=== PATIENT | female | born 1955 | race Caucasian/White ===

== ENCOUNTER → 2016-11-13 | Outpatient (CLI) | payer MEDICARE, BC ==
--- NOTE | 2016-11-14 10:24 | MM ---
Reason for exam: screening (asymptomatic). Last mammogram was performed 1 year and 1 month ago. History: Patient is postmenopausal. Physical Findings: A clinical breast exam by your physician is recommended on an annual basis and results should be correlated with mammographic findings. MG 3D Screening Mammo W/Cad Bilateral CC and MLO view(s) were taken. Prior study comparison: September 29, 2015, bilateral MG 3d screening mammo w/cad. September 16, 2014, bilateral MG diagnostic mammo w CAD YURY. The breast tissue is heterogeneously dense. This may lower the sensitivity of mammography. There is chronic nodularity in the left breast. No significant changes when compared with prior studies. ASSESSMENT: Benign, BI-RAD 2 RECOMMENDATION: Routine screening mammogram of both breasts in 1 year.
--- NOTE | 2016-11-14 11:25 | BD ---
EXAMINATION TYPE: MG DEXA axial skeleton. DATE OF EXAM: 11/13/2016 COMPARISON: NONE CLINICAL HISTORY: Height: 66.7 IN Weight: 164 LBS FRAX RISK QUESTIONS: Alcohol (3 or more units per day): NO Family History (Parent hip fracture): NO Glucocorticoids (More than 3mos): NO (Ex: prednisone, prednisolone, methylprednisolone, dexamethasone, and hydrocortisone). History of Fracture in Adulthood: YES LEFT TIB/FIB Secondary Osteoporosis: 1. Type 1 Diabetes: NO 2. Hyperthyroidism: NO 3. Menopause before 45: NO 4. Malnutrition: NO 5. Chronic liver disease: NO Rheumatoid Arthritis: YES Current Tobacco Use: YES RISK FACTORS HISTORY OF: Active: YES Diet low in dairy products/other sources of calcium: YES Postmenopausal woman: AGE 48 Lost more than 2 inches in height since high school: YES 03/14" MEDICATIONS: Additional Medications: VIT D, METHOTREXATE, ASPIRIN, FOLIC ACID, COQ10, EXAM MEASUREMENTS: Bone mineral densitometry was performed using the [employer] System. Bone mineral density as measured about the Lumbar spine is: ----- L1-L4(G/cm2): 1.147 T Score Values are as follows: ----- L2: -0.6 ----- L3: 0.0 ----- L4: 0.6 ----- L1-L4: -0.3 Bone mineral density has: Decreased -12.7% since study of: 07/10/2006 Bone mineral density about the R hip (g/cm2): 0.771 Bone mineral density about the L hip (g/cm2): 0.755 T Score values are as follows: -----R Neck: -1.9 -----L Neck: -2.0 -----R Total: -1.9 -----L Total: -2.0 Bone mineral density has: Decreased -17.3% since study of: 07/10/2006 IMPRESSION: Osteopenia (T Score between -2.5 and -1 as noted by T score values There is slightly increased risk of fracture and the patient may be considered for treatment. Re-Screen 2-5 years. NOTE: T-SCORE=SD OF THE YOUNG ADULT MEAN.
== END | disposition home or self-care (01) ==
LOC: RADMAMWWP 15:24
PROVIDERS: ATTEND Internal Medicine Geriatric Medicine
DX: Z12.31 Encounter for screening mammogram for malignant neoplasm of breast (principal); M85.80 Other specified disorders of bone density and structure, unspecified site; M81.0 Age-related osteoporosis without current pathological fracture
CPT/HCPCS: 77080; 77063; G0202

== ENCOUNTER → 2017-09-05 | Outpatient (CLI) | payer MEDICARE, BC ==
--- NOTE | 2017-09-05 11:04 | CT ---
EXAMINATION TYPE: CT chest wo con DATE OF EXAM: 09/05/2017 COMPARISON: HRCT 01/20/2014 HISTORY: 62-year-old female Pulmonary nodule TECHNIQUE: Contiguous axial scanning of the chest without IV contrast. Coronal and sagittal reconstru ctions performed. CT DLP: 230.3 mGycm Automated exposure control for dose reduction was used. FINDINGS: Chronic nodularity within the medial left breast as compared to 2014. Heart normal size with trace anterior pericardial fluid. Coronary vessel calcifications are present. Aorta normal caliber with conventional arch vessel branching anatomy. No thoracic lymphadenopathy. Very minimal emphysematous changes present in the upper lungs. Mild tree-in-bud densities or centrilo bular nodularity peripheral right upper to midlung, axial image 22 through 28. Strandy atelectasis or scarring at the lung bases and some strandy atelectasis at the inferior lingula. No consolidation or pleural effusion. Subpleural nodularity posterior right apex measures 4 mm and is unchanged from 201 4 and most likely are result of pleural parenchymal scarring. The lateral left kidney lesion measures 2.1 cm, stable to minimally increased from 1.9 cm in 2014. Pr ior ultrasound workup showed a cyst here. A compensated cyst is suggested given the soft tissue atten uation. Mild endplate spondylosis mid to lower thoracic spine. IMPRESSION: 1. COPD WITH VERY MILD EMPHYSEMATOUS CHANGE. 2. Mild tree-in-bud infiltrate peripheral right upper lobe could represent impacted inflammatory or m ucoid debris in the small airways or bronchiolitis including infectious bronchiolitis. Clinically cor relation. 3. Stable subpleural nodule right apex as compared to 2014 likely relating to pleural parenchymal sca rring. 4. The 2.1 cm lateral left renal lesion continues to show soft tissue density but is not significantl y changed in size. Findings suggest a benign Bosniak category 2 cyst.
== END | disposition home or self-care (01) ==
LOC: RADCTMAIN 10:20
PROVIDERS: ATTEND Internal Medicine Pulmonary Disease
DX: J43.9 Emphysema, unspecified (principal); R91.1 Solitary pulmonary nodule; R91.8 Other nonspecific abnormal finding of lung field
CPT/HCPCS: 71250

== ENCOUNTER → 2017-11-20 | Outpatient (CLI) | payer MEDICARE, BC ==
--- NOTE | 2017-11-21 13:11 | MM ---
Reason for exam: screening (asymptomatic). Last mammogram was performed 1 year ago. History: Patient is postmenopausal. Physical Findings: A clinical breast exam by your physician is recommended on an annual basis and results should be correlated with mammographic findings. MG 3D Screening Mammo W/Cad Bilateral CC and MLO view(s) were taken. Prior study comparison: November 13, 2016, bilateral MG 3d screening mammo w/cad. September 29, 2015, bilateral MG 3d screening mammo w/cad. The breast tissue is heterogeneously dense. This may lower the sensitivity of mammography. There is chronic nodularity in the left breast. Benign fat necrosis calcifications on the left. ASSESSMENT: Negative, BI-RAD 1 RECOMMENDATION: Routine screening mammogram of both breasts in 1 year.
== END | disposition home or self-care (01) ==
LOC: RADMAMWWP 06:45
PROVIDERS: ATTEND Internal Medicine Geriatric Medicine
DX: Z12.31 Encounter for screening mammogram for malignant neoplasm of breast (principal)
CPT/HCPCS: 77063; 77067

== ENCOUNTER → 2018-12-12 | Outpatient (CLI) | payer MEDICARE, BC ==
--- NOTE | 2018-12-12 16:24 | CT ---
EXAMINATION TYPE: CT chest wo con DATE OF EXAM: 12/12/2018 COMPARISON: 09/05/2017 HISTORY: Dyspnea CT DLP: 205.2 mGycm, Automated exposure control for dose reduction was used. CONTRAST: Performed injected with 0 mL of Isovue 300. TECHNIQUE: Axial images were obtained at 5 mm thick sections. Reconstructed images are reviewed on [employer] computer in the coronal plane. FINDINGS: Portion of the thyroid visualized is normal. There is a 0.4 cm nodular density in the upper outer aspect right apex which is stable from compariso n. There is an area of pneumonitis or minimal infiltrate within the posterior aspect left middle lobe. E xample image series 4 image 27. This areas is increased in size over the interval and should be viewe d with suspicion. Neoplasm cannot be excluded. No enlarged mediastinal or hilar adenopathy is evident. The ascending aorta diameter at the level o f the main pulmonary artery is 3.3 cm. The main pulmonary artery diameter at the bifurcation is 2.5 cm. Mild coronary artery calcification is noted. Limited CT sections are obtained through the upper abdomen. There is an exophytic rounded area measur ing 41 Hounsfield units and 2.5 cm in diameter from the mid posterior lateral left kidney. Additional workup with ultrasound is recommended. IMPRESSIONS: 1. Increasing area of pneumonitis within the periphery of the right mid lung. This should be viewed w ith suspicion. Neoplasm is not excluded. 2. Complex cyst or solid mass extending from the posterior lateral left kidney midportion. Additional evaluation with ultrasound is recommended.
== END | disposition home or self-care (01) ==
LOC: RADCTMAIN 09:21
PROVIDERS: ATTEND Internal Medicine Pulmonary Disease
DX: J18.9 Pneumonia, unspecified organism (principal); J44.9 Chronic obstructive pulmonary disease, unspecified; J45.40 Moderate persistent asthma, uncomplicated; M06.9 Rheumatoid arthritis, unspecified
CPT/HCPCS: 71250

== ENCOUNTER → 2018-12-12 | Outpatient (CLI) | payer MEDICARE, BC ==
--- NOTE | 2018-12-12 12:08 | BD ---
EXAMINATION TYPE: Axial Bone Density DATE OF EXAM: 12/12/2018 COMPARISON: 11/13/2016 CLINICAL HISTORY: M 82.0 Height: 67 Weight: 154 FRAX RISK QUESTIONS: Alcohol (3 or more units per day): no Family History (Parent hip fracture): no Glucocorticoids (More than 3mos): yes-breathing machine (Ex: prednisone, prednisolone, methylprednisolone, dexamethasone, and hydrocortisone). History of Fracture in Adulthood: yes Secondary Osteoporosis: 1. Type 1 Diabetes: no 2. Hyperthyroidism: no 3. Menopause before 45: no 4. Malnutrition: no 5. Chronic liver disease: no Rheumatoid Arthritis: yes Current Tobacco Use: yes RISK FACTORS HISTORY OF: Family History of Osteoporosis: does not think so Active: yes Diet low in dairy products/other sources of calcium: no Postmenopausal woman: yes Take estrogen and/or progesterone medications: no Lost more than 2 inches in height since high school: no Frequent falls: no Poor Health: no Hyperparathyroidism: no Adrenal Insufficiency: no MEDICATIONS: Prednisone or other steroids: yes How Lon-4 years Thyroid Medications: no Osteoporosis Medications: no Additional Medications: calcium Methotrexate, aspirin, folic acid, COQ10, Vitamin D, infusions for rh eumatoid arthritis Additional History: COPD EXAM MEASUREMENTS: Bone mineral densitometry was performed using the [employer] System. Bone mineral density as measured about the Lumbar spine is: ----- L1-L4(G/cm2): 1.129 T Score Values are as follows: ----- L2: -0.9 ----- L3: -0.2 ----- L4: 0.2 ----- L1-L4: -0.4 Bone mineral density has: Decreased -2.9% since study of: 11/13/2016 Bone mineral density about the R hip (g/cm2): 0.764 Bone mineral density about the L hip (g/cm2): 0.753 T Score values are as follows: -----R Neck: -2.0 -----L Neck: -2.0 -----R Total: -1.9 -----L Total: -2.2 Bone mineral density has: Decreased -2.2% since study of: 11/13/2016 IMPRESSION: Osteopenia (T Score between -2.5 and -1). There is slightly increased risk of fracture and the patient may be considered for treatment. Re-Screen 2-5 years. NOTE: T-SCORE=SD OF THE YOUNG ADULT MEAN.
--- NOTE | 2018-12-16 09:24 | MM ---
Reason for exam: screening (asymptomatic). Last mammogram was performed 1 year and 1 month ago. History: Patient is postmenopausal. Physical Findings: A clinical breast exam by your physician is recommended on an annual basis and results should be correlated with mammographic findings. MG 3D Screening Mammo W/Cad Bilateral CC and MLO view(s) were taken. Prior study comparison: November 20, 2017, bilateral MG 3d screening mammo w/cad. November 13, 2016, bilateral MG 3d screening mammo w/cad. The breast tissue is heterogeneously dense. This may lower the sensitivity of mammography. There are benign appearing round dystrophic calcifications bilaterally. There is chronic nodularity in the left breast. There is no discrete abnormality. ASSESSMENT: Benign, BI-RAD 2 RECOMMENDATION: Routine screening mammogram of both breasts in 1 year.
== END | disposition home or self-care (01) ==
LOC: RADMAMWWP 07:45
PROVIDERS: ATTEND Internal Medicine Geriatric Medicine
DX: Z12.31 Encounter for screening mammogram for malignant neoplasm of breast (principal); M85.80 Other specified disorders of bone density and structure, unspecified site; M81.0 Age-related osteoporosis without current pathological fracture
CPT/HCPCS: 77063; 77067; 77080

== ENCOUNTER → 2019-03-18 | Outpatient (CLI) | payer MEDICARE, BC ==
--- NOTE | 2019-03-18 08:51 | CT ---
EXAMINATION TYPE: CT chest wo con DATE OF EXAM: 03/18/2019 COMPARISON: 12/12/2018, 09/05/2017, and mammogram 12/12/2018 HISTORY: 63-year-old female moderate persistent asthma with acute exacerbation, rheumatoid arthritis, COPD, lung nodule TECHNIQUE: Contiguous axial scanning of the chest without IV contrast. Coronal and sagittal reconstru ctions performed. CT DLP: 248.1 mGycm Automated exposure control for dose reduction was used. FINDINGS: Mass within the medial left breast is unchanged back to 09/05/2017 and corresponds to a circumscribed mass with associated calcifications on the patient's recent screening mammogram. Heart normal size with trace anterior pericardial effusion. LAD calcifications are present. Aorta normal caliber with conventional arch vessel branching anatomy. 8 mm precarinal lymph node. No thoracic lymphadenopathy by CT size criteria. Minimal biapical pleural-parenchymal scarring. Minimal scattered emphysematous cysts. Some focal tree-in-bud opacities peripheral right midlung persist but show improvement from 12/12/2018 . Some strandy bibasilar atelectasis or scarring particularly in the inferior lingula. No consolidati on or pleural effusion. An exophytic intermediate attenuation lesion from the lateral left kidney measures 2.3 cm versus 2.1 cm on 09/05/2017. Indolent growth characteristics suggest a benign etiology such as a proteinaceous cy st. Bones: Mild to moderate degenerative disc disease mid thoracic spine. IMPRESSION: 1. COPD WITH MINIMAL EMPHYSEMATOUS CHANGE. 2. TREE-IN-BUD OPACITIES PERIPHERAL RIGHT MIDLUNG PERSIST BUT SHOW IMPROVEMENT FROM 12/12/2018. DISTAL SMALL AIRWAYS MUCOID IMPACTION, SEQUELA OF PRIOR INFLAMMATORY PROCESS, AND BRONCHIOLITIS ARE CONSIDE RATIONS. 3. THERE IS A SMALL 4 MM NODULE WITHIN THE AREA OF TREE-IN-BUD OPACITIES NOW APPARENT THAT CAN CONTIN UE TO BE FOLLOWED. 4. OTHERWISE, NO OTHER NEW SUSPICIOUS PULMONARY NODULE SEEN.
== END | disposition home or self-care (01) ==
LOC: RADCTMAIN 07:43
PROVIDERS: ATTEND Internal Medicine Pulmonary Disease
DX: J44.1 Chronic obstructive pulmonary disease with (acute) exacerbation (principal); J45.41 Moderate persistent asthma with (acute) exacerbation; R91.8 Other nonspecific abnormal finding of lung field; M06.9 Rheumatoid arthritis, unspecified; R91.1 Solitary pulmonary nodule; J98.4 Other disorders of lung
CPT/HCPCS: 71250

== ENCOUNTER → 2020-02-25 | Outpatient (CLI) | payer MEDICARE, BC ==
--- NOTE | 2020-02-26 10:30 | MM ---
Reason for exam: screening (asymptomatic). Last mammogram was performed 1 year and 2 months ago. History: Patient is postmenopausal. Physical Findings: A clinical breast exam by your physician is recommended on an annual basis and results should be correlated with mammographic findings. MG 3D Screening Mammo W/Cad Bilateral CC and MLO view(s) were taken. Prior study comparison: December 12, 2018, bilateral MG 3d screening mammo w/cad. November 20, 2017, bilateral MG 3d screening mammo w/cad. The breast tissue is heterogeneously dense. This may lower the sensitivity of mammography. Stable benign calcifications. There is chronic nodularity bilaterally. There is no dominant lesion. No significant changes when compared with prior studies. ASSESSMENT: Benign, BI-RAD 2 RECOMMENDATION: Routine screening mammogram of both breasts in 1 year.
== END ==
LOC: RADMAMWWP 15:58
PROVIDERS: ATTEND Internal Medicine Geriatric Medicine
DX: Z12.31 Encounter for screening mammogram for malignant neoplasm of breast (principal)
CPT/HCPCS: 77063; 77067

== ENCOUNTER → 2021-03-10 | Outpatient (CLI) | payer MEDICARE, BC ==
--- NOTE | 2021-03-13 10:06 | MM ---
Reason for exam: screening (asymptomatic). Last mammogram was performed 1 year ago. History: Patient is postmenopausal. Physical Findings: A clinical breast exam by your physician is recommended on an annual basis and results should be correlated with mammographic findings. MG 3D Screening Mammo W/Cad Bilateral CC and MLO view(s) were taken. Prior study comparison: February 25, 2020, bilateral MG 3d screening mammo w/cad. December 12, 2018, bilateral MG 3d screening mammo w/cad. The breast tissue is heterogeneously dense. This may lower the sensitivity of mammography. There are benign appearing round, dystrophic calcifications bilaterally, greater in the left breast. There is chronic nodularity in the left breast. There is no discrete abnormality. ASSESSMENT: Benign, BI-RAD 2 RECOMMENDATION: Routine screening mammogram of both breasts in 1 year.
== END | disposition home or self-care (01) ==
LOC: RADMAMWWP 09:36
PROVIDERS: ATTEND Internal Medicine Geriatric Medicine
DX: Z12.31 Encounter for screening mammogram for malignant neoplasm of breast (principal); Z78.0 Asymptomatic menopausal state
CPT/HCPCS: 77063; 77067

== ENCOUNTER → 2021-07-21 | Outpatient (CLI) | payer MEDICARE, BC ==
--- NOTE | 2021-07-21 09:17 | BD ---
EXAMINATION TYPE: Axial Bone Density DATE OF EXAM: 07/21/2021 COMPARISON: NONE CLINICAL HISTORY: 66 years year old Female. ICD-10 CODE: M85.80 Disorder of bone 67Height: 145 Weight: FRAX RISK QUESTIONS: Alcohol (3 or more units per day): NO Family History (Parent hip fracture): NO Glucocorticoids (More than 3mos): NO History of Fracture in Adulthood: TIB-FIB AGE 53 Secondary Osteoporosis: 1. Type 1 Diabetes: NO 2. Hyperthyroidism: NO 3. Menopause before 45: NO 4. Malnutrition: NO 5. Chronic liver disease: NO Rheumatoid Arthritis: YES Current Tobacco Use: YES RISK FACTORS HISTORY OF: Hip Fracture (Right/Left): NO Spine Fracture: NO History of Wrist Fracture: NO /Hip(right/left)/Wrist (right/left): NO Family History of Osteoporosis: GRANDMOTHER Active: YES Diet low in dairy products/other sources of calcium: YES Postmenopausal woman: YES Take estrogen and/or progesterone medications: NO Lost more than 2 inches in height since high school: NO Frequent falls: NO Poor Health: NO Hyperparathyroidism: NO Adrenal Insufficiency: NO MEDICATIONS: Prednisone or other steroids: NO Thyroid Medications: NO Osteoporosis Medications: NO Additional Medications: PULMICORT, ALBUTEROL, VIT D, MONTELUKAST, CO O, CALCIUM, SIMPONI INFUSION JUAN DAVID RY 2 MONTHS Additional History: EXAM MEASUREMENTS: Bone mineral densitometry was performed using the [employer] System. Bone mineral density as measured about the Lumbar spine is: ----- L1-L4(G/cm2): 1.077 T Score Values are as follows: ----- L1: -2.0 ----- L2: -1.0 ----- L3: -0.7 ----- L4: -0.2 ----- L1-L4: -0.9 Bone mineral density has: DECREASED 3.8% since study of: 12/12/2018 Bone mineral density about the R hip (g/cm2): 1.00 Bone mineral density about the L hip (g/cm2): 0.741 T Score values are as follows: -----R Neck: -0.3 -----L Neck: -2.1 -----R Total: -1.2 -----L Total: -2.6 Bone mineral density has: INCREASED 2.5% since study of: 12/12/2018 FRAX%s: The graph provided illustrates a 23.9% chance for a major osteoporotic fx and a 7.5% chance f or the hips probability for fx in 10 years time. IMPRESSION: Osteoporosis of the left hip. NOTE: T-SCORE=SD OF THE YOUNG ADULT MEAN.
== END | disposition home or self-care (01) ==
LOC: RADBDWWP 07:34
PROVIDERS: ATTEND Internal Medicine Geriatric Medicine
DX: M81.0 Age-related osteoporosis without current pathological fracture (principal)
CPT/HCPCS: 77080

== ENCOUNTER → 2022-03-14 | Outpatient (CLI) | payer MEDICARE, BC ==
--- NOTE | 2022-03-14 18:52 | MM ---
Reason for Exam: Screening (asymptomatic). Last mammogram was performed 1 year(s) and 1 month(s) ago. Patient History: Menarche at age 13. First Full-Term at age 25. Postmenopausal. Risk Values: Cheyanne 5 year model risk: 1.5%. NCI Lifetime model risk: 5.6%. Prior Study Comparison: 12/12/2018 Bilateral Screening Mammogram, [facility]. 02/25/2020 Bilateral Screening Mammogram, [facility]. 03/10/2021 Bilateral Screening Mammogram, [facility]. Tissue Density: The breast tissue is heterogeneously dense. This may lower the sensitivity of mammography. Findings: Analyzed By CAD. Chronic nodularity left breast. Fat necrosis, secretory, and round calcifications on the left remain unchanged. Grouped calcifications medial right breast also unchanged. Areas of asymmetric density on the right MLO view remain unchanged as well. No significant change from prior exams. Overall Assessment: Benign, BI-RAD 2 Management: Screening Mammogram of both breasts in 1 year. 1. Patient should continue monthly self breast exams. 2. A clinical breast exam by your physician is recommended on an annual basis. 3. This exam should not preclude additional follow-up of suspicious palpable abnormalities. Electronically signed and approved by: Colt Noble M.D. Radiologist
== END | disposition home or self-care (01) ==
LOC: RADMAMWWP 06:50
PROVIDERS: ATTEND Internal Medicine Geriatric Medicine
DX: Z12.31 Encounter for screening mammogram for malignant neoplasm of breast (principal); Z78.0 Asymptomatic menopausal state
CPT/HCPCS: 77063; 77067

== ENCOUNTER → 2023-04-15 | Outpatient (CLI) | payer MEDICARE, BC ==
--- NOTE | 2023-04-15 08:43 | MM ---
Reason for Exam: Screening (asymptomatic). Last mammogram was performed 1 year(s) and 1 month(s) ago. Patient History: Menarche at age 13. First Full-Term at age 25. Postmenopausal. Risk Values: Cheyanne 5 year model risk: 1.5%. NCI Lifetime model risk: 5.4%. Prior Study Comparison: 02/25/2020 Bilateral Screening Mammogram, [facility]. 03/10/2021 Bilateral Screening Mammogram, [facility]. 03/14/2022 Bilateral MG 3D screening mammo w/cad, [facility]. Tissue Density: The breast tissue is heterogeneously dense. This may lower the sensitivity of mammography. Findings: Analyzed By CAD. There is no suspicious group of microcalcifications or new suspicious mass. Benign-appearing calcifications bilaterally. Overall Assessment: Benign, BI-RAD 2 Management: Screening Mammogram of both breasts in [address] [facility] will attempt to contact patient to return for supplemental views and ultrasound if indicated. Patient should continue monthly self-breast exams. A clinical breast exam by your physician is recommended on an annual basis. This exam should not preclude additional follow-up of suspicious palpable abnormalities. Note on Cheyanne scores and lifetime risk: 1. A Cheyanne score greater than 3% is considered moderate risk. If this is the case, consider specialist referral to assess eligibility for a risk reducing agent. 2. If overall lifetime risk for the development of breast cancer is 20% or higher, the patient may qualify for future screening with alternating mammogram and breast MRI. Electronically signed and approved by: Eder Layne DO
== END | disposition home or self-care (01) ==
LOC: RADMAMWWP 08:17
PROVIDERS: ATTEND Internal Medicine Geriatric Medicine
DX: Z12.31 Encounter for screening mammogram for malignant neoplasm of breast (principal); Z78.0 Asymptomatic menopausal state
CPT/HCPCS: 77063; 77067